=== PATIENT | female | born 1990 | race American Indian/Alaskan Native ===

== ENCOUNTER 2021-11-10 07:33 | Day surgery (SDC) | payer OTHER ==
--- NOTE | 2021-11-09 07:27 | History and Physical Report ---
History of Present Illness Date of examination: 11/08/21 Chief complaint: Undesired Fertility History of present illness: Pt is a 31 year old who presents for surgical sterilization via salpingectomy. She is aware of tubal ligation and long acting reversible contraceptive options and desires to proceed. Past History Past Medical History: no pertinent history Past Surgical History: no surgical history Family/Genetic History: cancer Social history: no significant social history - Obstetrical History : 4 Para: 4 Hx # Term Pregnancies: 4 Number of Pregnancies: 0 Spontaneous Abortions: 0 Induced : 0 Number of Living Children: 4 Medications and Allergies Allergies Allergy/AdvReac Type Severity Reaction Status Date / Time nifedipine [From Procardia] Allergy Hives Verified 06/07/18 18:30 bee venom protein (honey bee) AdvReac Swelling Verified 06/07/18 18:30 Home Medications Medication Instructions Recorded Confirmed Last Taken Type Depo Shots 1 dose IM [id number] 11/03/21 Unknown History Review of Systems All systems: negative - Physical Exam Breasts: Positive: deferred Cardiovascular: Regular rate Lungs: Positive: Clear to auscultation Abdomen: Positive: soft Extremities: Positive: normal Results All other labs normal. Assessment and Plan A: Undesired Fertility P: Proceed with laparoscopic bilateral salpingectomy and other indicated procedures
[~2021-11-10 07:33] MED LIST: ACETAMINOPHEN 500 MG TAB PO SCH; CELECOXIB 200 MG CAP PO NR; GABAPENTIN 300 MG CAP PO NR; LACTATED RINGERS 1,000 ML IV SCH; MIDAZOLAM 2 MG/2 ML INJ IV NR; SCOPOLAMINE TRANSDERMAL PATCH 72 HR TD NR
[2021-11-10] MEDS ORDERED: ceFAZolin/Water 2 GM/20 ML 2 GM/20 ML SYRINGE IV NR (08:00)
[2021-11-10] MEDS ORDERED: oxyCODONE /ACETAMINOPHEN 5-325MG TAB PO PRN (08:11)
[2021-11-10] MEDS ORDERED: ONDANSETRON 4 MG/2 ML INJ IV PRN (08:11)
[2021-11-10] MEDS ORDERED: HYDROmorphone 0.5 MG/0.5 ML INJ IV PRN (08:11)
--- NOTE | 2021-11-10 08:11 | Anesthesia Consultation ---
Anesthesia Consult and Med Hx Date of service: 11/10/21 - Airway Anesthetic Teeth Evaluation: Good ROM Head & Neck: Adequate Mental/Hyoid Distance: Adequate Mallampati Class: Class II Intubation Access Assessment: Probably Good - Pre-Operative Health Status ASA Pre-Surgery Classification: ASA1 Proposed Anesthetic Plan: General - Pulmonary Hx Smoking: No Hx Respiratory Symptoms: No - Cardiovascular System Hx Hypertension: No (hx Pre-E with prior ; no current meds) - Central Nervous System CVA: No - Endocrine Hx Renal Disease: No Hx Liver Disease: No Hx Insulin Dependent Diabetes: No Hx Non-Insulin Dependent Diabetes: No Hx Thyroid Disease: No - Additional Comments Anesthesia Medical History Comments: No prior GA. No FHx anesthetic complications.
--- NOTE | 2021-11-10 08:11 | Anesthesia Day of Surgery ---
Anesthesia Day of Surgery - Day of Surgery Patient Examined: Yes Patient H&P Reviewed: Yes Patient is NPO: Yes
[2021-11-10] MEDS ORDERED: propofoL 200 MG/20 ML VIAL IV ONE (09:35)
[2021-11-10] MEDS ORDERED: ROCURONIUM 50 MG/5 ML INJ IV ONE (09:35)
[2021-11-10] MEDS ORDERED: LIDOCAINE MPF (2%) 20 MG/1 ML VIAL 5 ML ONE (09:35)
[2021-11-10] MEDS ORDERED: fentaNYL 100 MCG/2 ML INJ ONE ×2 (09:35→11:23)
[2021-11-10] MEDS ORDERED: BUPIVACAINE/PF (0.5%) 5 MG/1 ML 30 ML VIAL INFILTRATI ONE ×2 (09:39→10:37)
[2021-11-10 10:07] LABS: Hematocrit 41.7 % (30.3-42.9); Hemoglobin 13.8 gm/dl (10.1-14.3); Mean Corpuscular HGB Conc 33 % (30-34); Mean Corpuscular Volume 88 fl (79-97); Platelet Count 310 K/mm3 (140-440); Red Blood Count 4.74 M/mm3 (3.65-5.03); Red Cell Distribution Width 13.8 % (13.2-15.2)
[2021-11-10] MEDS ORDERED: SILVER NITRATE APPLICATOR 1 EA TP ONE ×2 (10:20→11:39)
[2021-11-10] MEDS ORDERED: SODIUM CHLORIDE 0.9% IRR 1,000 ML BOTTLE IR ONE (10:37)
[2021-11-10] MEDS ORDERED: ONDANSETRON 4 MG/2 ML INJ ONE (11:07)
[2021-11-10] MEDS ORDERED: KETOROLAC 30 MG/1 ML INJ ONE (11:07)
[2021-11-10] MEDS ORDERED: LACTATED RINGERS 1,000 ML ONE (11:07)
[2021-11-10] MEDS ORDERED: dexAMETHasone 20 MG/5 ML VIAL ONE (11:07)
[2021-11-10] MEDS ORDERED: GLYCOPYRROLATE 0.4 MG/2 ML INJ ONE (11:07)
[2021-11-10] MEDS ORDERED: NEOSTIGMINE 10MG/10 ML INJ MDV ONE (11:07)
--- NOTE | 2021-11-10 11:44 | Operative Report ---
Operative Report Operative Report: Date of Surgery: November 10, 2021 Preoperative Diagnosis: Undesired Fertility Postoperative Diagnosis: Same Procedure: Laparoscopic Bilateral salpingectomy Surgeon: Nickie Brooke MD Anesthesia: GETA Findings: 1) Small anteverted uterus which sounded to 10 cm 2) Normal appearing uterus, ovaries and tubes EBL: 30 mL Urine output: 40 mL, clear but concentrated at the end of the procedure Specimen: Bilateral fallopian tubes to pathology Complications: None. Counts correct x 2 Disposition: Stable to PACU Indication for Procedure: This pt is a 31 year old who presents for surgical sterilization. She is aware of long acting reversible contraceptives as well as tubal ligation and she desires to proceed with bilateral salpingectomy. Operation In Detail: After the risks, benefits, complications and alternatives were explained to the patient, she gave informed consent for the procedure. She was then taken to the operating room and placed in the dorsal supine position with her IV noted to be running well and SCDs in place and functioning. General endotracheal anesthesia was induced without difficulty. The patient was then placed in the dorsal lithotomy position and prepped and draped in a normal sterile fashion. A time out was then performed. An exam under anesthesia revealed a small mobile antevereted uterus. A curtis catheter was placed to drain the bladder. A bi-valve speculum was placed in the vagina to visualize the cervix. A single tooth tenaculum was placed on the anterior lip of the cervix for traction. A uterine manipulator was then placed. The single tooth tenaculum and speculum were removed from the vagina atraumatically. The surgeon's gloves were then changed. Attention was then turned to entry into the abdominal cavity. A 5 mm infraumbilical incision was made with an 11 blade. The skin was grasped on either side of the umbilicus and tented up. The Veres needle was placed into the peritoneal cavity, confirmed with a saline drop test. The abdomen was then insufflated with CO2 gas to a pressure of 15 mmHg. A 5 mm Visiport trocar was then placed. An anatomic survey was then performed with findings as indicated above. A second trocar site was created 4 cm superior to the pubic symphysis in the midline measuring 8 mm. An 8 mm trocar was then placed under direct visualization. A third 5 mm trocar was placed in the LLQ under direct visualization. The patient was placed in the Trendelenburg position. The uterus was elevated, and each fallopian tube was followed out to the fimbriae, grasped with a grasper for elevation, and excised using a 5 mm Ligasure device. Both fallopian tubes were removed through the 8 mm port and sent to pathology. At this time, all instruments and trocars were removed from the abdominal cavity. The pneumoperitoneum was released. The incisions were then infiltrated with half percent Marcaine. The incisions were then reapproximated with 4-0 Vicryl in a subcuticular fashion. They were then covered with skin glue. The uterine manipulator was removed atraumatically from the vagina. A serosal defect was noted after removal of the manipulator that was reapproximated with a figure of eight of 2-0 Vicryl. Hemostasis was noted. All instruments were removed from the vagina. The curtis catheter was removed atraumatically. At this time the procedure was ended. The patient was placed into the dorsal supine position and extubated without difficulty. She was subsequently taken to the PACU in stable condition. All instrument, needle and lap counts were correct 2.
--- NOTE | 2021-11-10 11:48 | Short Stay Summary ---
Short Stay Documentation Date of service: 11/10/21 - History H&P: dictated Social history: no significant social history - Allergies and Medications Current Medications: Allergies nifedipine [From Procardia] Allergy (Verified 06/07/18 18:30) Hives bee venom protein (honey bee) Adverse Reaction (Verified 06/07/18 18:30) Swelling Home Medications Medication Instructions Recorded Confirmed Last Taken Type Depo Shots 1 dose IM [id number] 11/03/21 Unknown History Active Medications Acetaminophen (Acetaminophen 500 Mg Tab) 1,000 mg PO PREOP KAYLEE Stop: 11/10/21 20:00 Celecoxib (Celecoxib 200 Mg Cap) 200 mg PO PREOP NR Stop: 11/10/21 20:00 Gabapentin (Gabapentin 300 Mg Cap) 300 mg PO PREOP NR Stop: 11/10/21 20:00 Hydromorphone HCl (Hydromorphone 0.5 Mg/0.5 Ml Inj) 0.5 mg IV Q10MIN PRN PRN Reason: Pain , Severe (7-10) Stop: 11/10/21 20:00 Cefazolin Sodium (Ancef/Sterile Water 2 Gm/20 Ml) 2 gm in 20 mls @ 80 mls/hr IV PREOP NR; Protocol Stop: 11/10/21 20:00 Lactated Ringer's (Lactated Ringers) 1,000 mls @ 100 mls/hr IV DIRECT KAYLEE Stop: 11/10/21 23:59 Midazolam HCl (Midazolam 2 Mg/2 Ml Inj) 2 mg IV PREOP NR Stop: 11/10/21 20:00 Ondansetron HCl (Ondansetron 4 Mg/2 Ml Inj) 4 mg IV ONCE PRN PRN Reason: Nausea And Vomiting Stop: 11/10/21 14:00 Oxycodone/Acetaminophen (Oxycodone /Acetaminophen 5-325mg Tab) 1 tab PO ONCE PRN PRN Reason: Pain, Moderate (4-6) Stop: 11/10/21 14:00 Scopolamine (Scopolamine Transdermal Patch 72 Hr) 1 each TD PREOP NR Stop: 11/10/21 20:00 - Physical exam Breasts: deferred - Brief post op/procedure progress note Date of procedure: 11/10/21 Pre-op diagnosis: Undesired Fertility Post-op diagnosis: same Procedure: Laparoscopic bilateral salpingectomy Anesthesia: GETA Findings: 1) Normal sized anteverted uterus that sounded to 10 cm 2) Normal appearing uterus, ovaries and tubes Surgeon: KIRA PHAM Estimated blood loss: minimal (30 mL) Specimen disposition: to lab Condition: stable - Hospital course Hospital course: Pt underwent laparoscopic bilateral salpingectomy which she tolerated well. She was observed in the PACU until she met discharge criteria. She will follow up in the office in two weeks for an incision check. - Disposition Condition at discharge: Stable Disposition: 01 HOME / SELF CARE / HOMELESS - Discharge Diagnoses (1) Encounter for sterilization Status: Acute Short Stay Discharge Plan Activity: other (Nothing in vagina, no intercourse, no tub baths, no swimming x 4 wks ) Weight Bearing Status: Full Weight Bearing Diet: regular Wound: keep clean and dry Follow up with: SUKHWINDER MENDOZA MD [Primary Care Provider] - 7 Days KIRA PHAM MD [Staff Physician] - 14 Days (Please call to schedule incision check.) Prescriptions: HYDROcodone/APAP 5-325 [[place] 5/325] 1 each PO Q6HR PRN #30 tablet PRN Reason: Pain
--- NOTE | 2021-11-10 13:34 | Post Anesthesia Evaluation ---
- Post Anesthesia Evaluation Patient Participated: Yes Airway Patent: Yes Stable Respiratory Function: Yes Nausea/Vomiting: Yes (antiemetic given) Temp > 96.8F: Yes Pain Manageable: Yes Adequeate Hydration: Yes Anesthesia Complications: No
[2021-11-10 14:30] VITALS: BP 113/69
== END 2021-11-10 13:50 | disposition home or self-care (01) ==
LOC: OR 07:33
PROVIDERS: ATTEND Obstetrics & Gynecology
DX: Z30.2 Encounter for sterilization (principal); D64.9 Anemia, unspecified; Z88.8 Allergy status to other drugs, medicaments and biological substances; Z79.899 Other long term (current) drug therapy; Z91.030 Bee allergy status; Z87.440 Personal history of urinary (tract) infections; Z72.89 Other problems related to lifestyle; Z98.890 Other specified postprocedural states
CPT/HCPCS: 36415; 58661; 81025; 85027; 88302; J0690; J1100; J1815; J1885; J2250; J2405; J2704; J2710; J3010; J3490; J7120